=== PATIENT | male | born 1940 ===

== ENCOUNTER 2017-10-23 11:35 | Inpatient (IN) | payer MEDICARE ==
--- NOTE | 2017-10-23 12:16 | C.PDOC ---
History Of Present Illness Patient presents to ED c/o SOB worse with laying flat over the past 1 week. He admits to nonproductive cough, but denies chest pain, fever, abdominal pain, palpitations, nausea/vomiting, leg edema. Time Seen by Provider: 10/23/17 11:45 Chief Complaint (Nursing): Shortness Of Breath History Per: Patient History/Exam Limitations: no limitations Onset/Duration Of Symptoms: Days Current Symptoms Are (Timing): Still Present Exacerbating Factor(s): Coughing Current Respiratory Medications: See Home Med List Severity: Moderate Past Medical History Reviewed: Historical Data, Nursing Documentation, Vital Signs Vital Signs: Last Vital Signs Temp Pulse Resp 20 10/23/17 12:17 BP Pulse Ox 98 10/23/17 12:57 - Medical History PMH: Arthritis, Benign Prostatic Hyperplasia, Diabetes (type 2), HTN, Hypercholesterolemia Denies: Chronic Kidney Disease Surgical History: Appendectomy - [facility] Procedures VACCINATION NEC (08/06/14) Family History: States: No Known Family Hx - Social History Hx Tobacco Use: No Hx Alcohol Use: No Hx Substance Use: No - Immunization History Hx Tetanus Toxoid Vaccination: No Hx Influenza Vaccination: No Hx Pneumococcal Vaccination: No Review Of Systems Constitutional: Negative for: Fever, Chills Cardiovascular: Positive for: Orthopnea. Negative for: Chest Pain, Palpitations Respiratory: Positive for: Cough, Shortness of Breath Gastrointestinal: Negative for: Nausea, Vomiting, Abdominal Pain, Diarrhea Skin: Negative for: Rash Neurological: Negative for: Weakness, Numbness Physical Exam - Physical Exam Appears: Well, Non-toxic, No Acute Distress, Other (speaking in full sentences) Head: Atraumatic, Normacephalic Eye(s): bilateral: Normal Inspection Oral Mucosa: Moist Cardiovascular: Rhythm Regular Respiratory: No Accessory Muscle Use, Rales (mild at bases B/L ), Rhonchi ( scattered rhonchi B/L ), No Wheezing Gastrointestinal/Abdominal: Normal Exam, Bowel Sounds, Soft, No Tenderness Extremity: Normal ROM, No Pedal Edema, No Calf Tenderness Neurological/Psych: Oriented x3 ED Course And Treatment - Laboratory Results Result Diagrams: 10/23/17 12:34 10/23/17 12:34 ECG: Interpreted By Me, Viewed By Me (sinus bradycardia 58 bpm, normal axis, no acute ST/T wave changes) ECG Interpretation: No Acute Changes O2 Sat by Pulse Oximetry: 98 (RA) Pulse Ox Interpretation: Normal Progress Note: Blood work, CXR, EKG, ordered and reviewed. Disposition - Disposition Disposition Time: 13:00 Condition: STABLE Forms: [employer] [facility] ([place]ian) - Clinical Impression Clinical Impression: Dyspnea, Orthopnea Physician Patient Turnover Patient Signed Over To: Queta Reeves Handoff Comments: pending labs, reassess
--- NOTE | 2017-10-23 12:22 | RAD ---
Date of service: 10/23/2017 PROCEDURE: CHEST RADIOGRAPH, 1 VIEW HISTORY: SOB COMPARISON: CT angiography of the chest, abdomen pelvis performed 04/13/2015. FINDINGS: LUNGS: Pulmonary vascular congestion. Questionable patchy bibasilar infiltrates versus chronic changes. PLEURA: No pneumothorax or pleural fluid seen. CARDIOVASCULAR: Atherosclerotic aortic calcifications. Cardiomediastinal silhouette enlarged. OSSEOUS STRUCTURES: Degenerative changes. VISUALIZED UPPER ABDOMEN: Normal. OTHER FINDINGS: None. IMPRESSION: Pulmonary vascular congestion. Questionable patchy bibasilar infiltrates versus chronic changes.
[2017-10-23 12:40] LABS: LYMPH # 1.3 K/uL (1.0-4.3); LYMPH % 31.1 % (20.0-40.0); MEAN CELL VOLUME 78.8 fL (80.0-94.0); MEAN CORPUSCULAR HEMOGLOBIN 25.6 pg (27.0-31.0); MEAN CORPUSCULAR HGB CONC 32.5 g/dL (33.0-37.0); MEAN PLATELET VOLUME 9.5 fL (7.2-11.7); MONO # 0.9 K/uL (0.0-0.8); MONO % 21.3 % (0.0-10.0); NEUT # 1.9 K/uL (1.8-7.0); NEUT % 47.6 % (50.0-75.0); NRBC % 0.1 % (0.0-2.0); PLATELET COUNT 81 K/uL (130-400); RED CELL DISTRIBUTION WIDTH 18.4 % (11.5-14.5)
[2017-10-23 12:42] LABS: HEMOGLOBIN 9.2 g/dL (12.0-18.0)
[2017-10-23 12:50] LABS: INR 1.4
[2017-10-23 12:51] LABS: PROTHROMBIN TIME 14.9 SECONDS (9.7-12.2)
[2017-10-23 12:54] LABS: ALB/GLOB RATIO 1.8 (1.0-2.1); ALBUMIN 4.5 g/dL (3.5-5.0); CALCIUM 9.1 mg/dl (8.6-10.4)
[2017-10-23 13:05] LABS: CK-MB 0.99 ng/mL (0.0-3.38); TROPONIN I 0.021 ng/mL (0.00-0.120)
[2017-10-23 13:45] LABS: LYMPHOCYTE 26 % (20-40); MONOCYTE 8 % (0-10); NEUTROPHIL 66 % (50-75); TOTAL CELLS COUNTED 100
[2017-10-23 13:47] LABS: ANISOCYTOSIS SLIGHT; HYPOCHROMIC SLIGHT; OVALOCYTES SLIGHT; PLATELET ESTIMATE DECREASED (NORMAL); POIKILOCYTOSIS SLIGHT; TEARDROP CELLS SLIGHT
[2017-10-23 13:48] LABS: POLYCHROMIC SLIGHT
[2017-10-23] MEDS ORDERED: Nitroglycerin 2% Ointment Foilpak UD TOP ONE (18:27)
[2017-10-23] MEDS: Nitroglycerin 2% Ointment Foilpak UD TOP SCH (18:27)
--- NOTE | 2017-10-24 00:20 | CP.PCM.CON ---
History of Present Illness - History of Present Illness History of Present Illness: CC: Dyspnea and Valvular regurgitation Patient presents to ED c/o SOB worse with laying flat over the past 1 week. He admits to nonproductive cough, but denies chest pain, fever, abdominal pain, palpitations, nausea/vomiting, leg edema. Chief Complaint (Nursing): Shortness Of Breath History Per: Patient History/Exam Limitations: no limitations Onset/Duration Of Symptoms: Days Current Symptoms Are (Timing): Still Present Exacerbating Factor(s): Coughing Current Respiratory Medications: See Home Med List Severity: Moderate - Medical History PMH: Arthritis, Benign Prostatic Hyperplasia, Diabetes (type 2), HTN, Hypercholesterolemia Denies: Chronic Kidney Disease Surgical History: Appendectomy - [facility] Procedures VACCINATION NEC (08/06/14) Family History: States: No Known Family Hx - Social History Hx Tobacco Use: No Hx Alcohol Use: No Hx Substance Use: No - Immunization History Hx Tetanus Toxoid Vaccination: No Hx Influenza Vaccination: No Hx Pneumococcal Vaccination: No Review Of Systems Constitutional: Negative for: Fever, Chills Cardiovascular: Positive for: Orthopnea. Negative for: Chest Pain, Palpitations Respiratory: Positive for: Cough, Shortness of Breath Gastrointestinal: Negative for: Nausea, Vomiting, Abdominal Pain, Diarrhea Skin: Negative for: Rash Neurological: Negative for: Weakness, Numbness Physical Exam - Physical Exam Appears: Well, Non-toxic, No Acute Distress, Other (speaking in full sentences) Head: Atraumatic, Normacephalic Eye(s): bilateral: Normal Inspection Oral Mucosa: Moist Cardiovascular: Rhythm Regular Respiratory: No Accessory Muscle Use, Rales (mild at bases B/L ), Rhonchi ( scattered rhonchi B/L ), No Wheezing Gastrointestinal/Abdominal: Normal Exam, Bowel Sounds, Soft, No Tenderness Extremity: Normal ROM, No Pedal Edema, No Calf Tenderness Neurological/Psych: Oriented x3 Past Patient History - Infectious Disease Hx of Infectious Diseases: None - Tetanus Immunizations Tetanus Immunization: Unknown - Past Medical History & Family History Past Medical History?: Yes - Past Social History Smoking Status: Never Smoked - CARDIAC Hx Hypercholesterolemia: Yes Hx Hypertension: Yes - PULMONARY Hx Respiratory Disorders: No - NEUROLOGICAL Hx Neurological Disorder: No - HEENT Hx HEENT Problems: No - RENAL Hx Chronic Kidney Disease: No - ENDOCRINE/METABOLIC Hx Endocrine Disorders: Yes Hx Diabetes Mellitus Type 2: Yes - HEMATOLOGICAL/ONCOLOGICAL Hx Blood Disorders: No - INTEGUMENTARY Hx Dermatological Problems: No - MUSCULOSKELETAL/RHEUMATOLOGICAL Hx Arthritis: Yes Hx Falls: No - GASTROINTESTINAL Hx Gastrointestinal Disorders: No - GENITOURINARY/GYNECOLOGICAL Hx Genitourinary Disorders: Yes Hx Prostate Problems: Yes (incontinent) - PSYCHIATRIC Hx Substance Use: No - SURGICAL HISTORY Hx Appendectomy: Yes - ANESTHESIA Hx Anesthesia: Yes Hx Anesthesia Reactions: No Hx Malignant Hyperthermia: No Meds Allergies/Adverse Reactions: Allergies Allergy/AdvReac Type Severity Reaction Status Date / Time polle Allergy Intermediate WHEEZING Uncoded 10/23/17 11:57 - Medications Medications: Current Medications Furosemide (Lasix) 20 mg IVP DAILY [facility] Nitroglycerin (Nitro-Bid 2% Oint) 1 ea TOP Q6 [facility] Last Admin: 10/23/17 18:27 Dose: 1 ea Results - Vital Signs Recent Vital Signs: Last Vital Signs Temp 98.3 F 10/23/17 19:10 Pulse 71 10/23/17 20:00 Resp 20 10/23/17 19:21 BP 174/87 H 10/23/17 19:10 Pulse Ox 98 10/23/17 20:00 - Labs Result Diagrams: 10/23/17 12:34 10/23/17 12:34 Labs: Laboratory Results - last 24 hr 10/23/17 10/23/17 10/23/17 11:59 12:34 12:34 WBC 4.0 L RBC 3.60 L Hgb 9.2 L D Hct 28.3 L MCV 78.8 L MCH 25.6 L MCHC 32.5 L RDW 18.4 H Plt Count 81 L MPV 9.5 Neut % (Auto) 47.6 L Lymph % (Auto) 31.1 [place] % (Auto) 21.3 H Eos % (Auto) 0.0 Baso % (Auto) 0.0 Neut # (Auto) 1.9 Lymph # (Auto) 1.3 [place] # (Auto) 0.9 H Eos # (Auto) 0.0 Baso # (Auto) 0.0 Neutrophils % (Manual) 66 Lymphocytes % (Manual) 26 Monocytes % (Manual) 8 Platelet Estimate Decreased L Polychromasia Slight Hypochromasia (manual) Slight Poikilocytosis (manual Slight Anisocytosis (manual) Slight Tear Drop Cells Slight Ovalocytes Slight PT 14.9 H INR 1.4 APTT 32 Sodium Potassium Chloride Carbon Dioxide Anion Gap BUN Creatinine Est GFR ( Amer) Est GFR (Non-Af Amer) POC Glucose (mg/dL) 171 H Random Glucose Calcium Total Bilirubin AST ALT Alkaline Phosphatase Total Creatine Kinase CK-MB (Mass) Troponin I NT-Pro-B Natriuret Pep Total Protein Albumin Globulin Albumin/Globulin Ratio 10/23/17 10/23/17 12:34 21:35 WBC RBC Hgb Hct MCV MCH MCHC RDW Plt Count MPV Neut % (Auto) Lymph % (Auto) [place] % (Auto) Eos % (Auto) Baso % (Auto) Neut # (Auto) Lymph # (Auto) [place] # (Auto) Eos # (Auto) Baso # (Auto) Neutrophils % (Manual) Lymphocytes % (Manual) Monocytes % (Manual) Platelet Estimate Polychromasia Hypochromasia (manual) Poikilocytosis (manual Anisocytosis (manual) Tear Drop Cells Ovalocytes PT INR APTT Sodium 145 Potassium 4.6 Chloride 104 Carbon Dioxide 28 Anion Gap 17 BUN 21 H Creatinine 1.6 H Est GFR ( Amer) 51 Est GFR (Non-Af Amer) 42 POC Glucose (mg/dL) 141 H Random Glucose 148 H Calcium 9.1 Total Bilirubin 2.0 H AST 18 ALT 21 Alkaline Phosphatase 26 L Total Creatine Kinase 85 CK-MB (Mass) 0.99 Troponin I 0.0210 NT-Pro-B Natriuret Pep 9100 H Total Protein 7.1 Albumin 4.5 Globulin 2.5 Albumin/Globulin Ratio 1.8 Assessment & Plan - Assessment and Plan (Free Text) Assessment: (1) Dyspnea on minimal exertion Assessment and plan: ECHO shows significant MR and AI Will evaluate by JUAN PABLO and Cath Continue Lasix (2) Aortic dissection Assessment and plan: s/p CT Chest/Abdomen indicating Type B aortic dissection Chronic (3) Benign prostatic hyperplasia Current Visit: Yes Status: Chronic Comment: Mgt as per PMD (4) Diabetes mellitus Current Visit: Yes Status: Acute Comment: Start Insulin Sliding Scale Accuchecks Home medication of Metformin on hold Monitor (5) Prophylactic measure Assessment and plan: On heparin 5000 units SC Q12 On Protonix 40 mg PO Daily Current Visit: Yes Status: Acute
[2017-10-24] MEDS: Nitroglycerin 2% Ointment Foilpak UD TOP SCH ×4 (00:22→18:27)
--- NOTE | 2017-10-24 02:09 | HP ---
HISTORY OF PRESENT ILLNESS: A 77-year-old gentleman who was brought in with a history of shortness of breath, that started last night. He has multiple medical problems which includes history of hypertension, diabetes, high cholesterol, atherosclerosis. 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 This was diagnosed in 11/2014, three years ago. He was in usual state of health up until last night when he could not sleep, had a cough and shortness of breath, came to the emergency room but his chest x-ray had shown mild vascular congestion and the proBNP was elevated to 9000. His hemoglobin was 9.2. MEDICATIONS AT HOME: Include baby aspirin one a day, Crestor 20 one a day, Lovaza, metformin 500 mg twice a day. PAST MEDICAL HISTORY: He had a cardiac cath done many years ago. He had a nonobstructive coronary artery disease. Echocardiogram was recently done, few months ago, had shown dilated LV, mild to moderate AI, mild to moderate MR, grade 2 LV diastolic dysfunction. He previously also has been seen by Dr. Aguila. FAMILY HISTORY: Negative for premature coronary artery disease. REVIEW OF SYSTEMS: No generalized weakness, no fever, no chills, no dizziness, except when he walks around in the hot weather. Otherwise, unremarkable. No syncope. Nonproductive cough for 2 days. No hemoptysis. Denies any chest pain. Able to walk and do routine activities, 3 to 4 block on a level ground. No palpitations. Neurologically, no TIAs, no CVAs. No peptic ulcer disease. No bleeding disorders. Does have a history of arthritis and back pains and knee pains. There is no evidence of depression. Denies any urinary complaints. He does have erectile dysfunction, has been seen and evaluated by urologist in the past. PHYSICAL EXAMINATION: GENERAL: Shows elderly gentleman, conscious, alert, well oriented, in no acute distress. VITAL SIGNS: He is 5 feet 7 inches, weighs 192 pounds. His blood pressure is 136/70, heart rate of 56 and regular, sinus rhythm on the telemetry, respiratory rate of 20, afebrile. HEENT: No neck vein distentions. No carotid bruits. MOUTH: Mouth shows absence of all teeth. EYES: No pallor, no icterus. HEAD: Normocephalic. LUNGS: Show few basilar rales. Otherwise unremarkable. HEART: PMI is not localized. S1 and S2 appear normal. There are no gallops. There is a grade 2/6 holosystolic murmur in mitral area. No diastolic murmur heard. No S3 gallop. ABDOMEN: Soft, nontender. EXTREMITIES: No cyanosis, clubbing, or edema. Distal pulses are intact. NEUROLOGIC: Awake, alert, oriented x3. No focal signs. PSYCHIATRIC: No evidence of depression. LABORATORY DATA: Hemoglobin is 9.2. Chest x-ray shows mild congestion. Chem-7 is unremarkable. Bilirubin is elevated at 2. EKG: Sinus bradycardia, LVH, nonspecific ST-T changes. Troponins are not available. 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 PLAN: At this point is to give small dose of diuretic. We will repeat echocardiogram with a Doppler study and repeat CT, angio of chest and abdomen. May need vascular consultation. Care of plan was explained to the patient. Also, we will do anemia workup. Eric Arias MD
[2017-10-24] MEDS: Pantoprazole 40 mg EC Tab PO SCH (09:48)
--- NOTE | 2017-10-24 11:56 | CARD ---
APPROVED REPORT Date of service: 10/23/2017 EXAM: Two-dimensional and M-mode echocardiogram with Doppler and color Doppler. Other Information Quality : GoodRhythm : INDICATION Aortic Valve Disease Dyspnea Chest Pain Congestive Heart Failure Aortic Dissection 2D DIMENSIONS IVSd1.6 (0.7-1.1cm)LVDd5.5 (3.9-5.9cm) PWd1.2 (0.7-1.1cm)LVDs4.7 (2.5-4.0cm) FS (%) 14.8 %LVEF (%)50.0 (>50%) M-Mode DIMENSIONS Left Atrium (MM)3.79 (2.5-4.0cm)IVSd1.22 (0.7-1.1cm) Aortic Root4.18 (2.2-3.7cm)LVDd6.43 (4.0-5.6cm) Aortic Cusp Exc.1.90 (1.5-2.0cm)PWd1.22 (0.7-1.1cm) FS (%) 41 %LVDs3.79 (2.0-3.8cm) LVEF (%)50 (>50%) Aortic Valve AI P 1/2 [id number] Mitral Valve MV E Xdlanjpy25.1cm/sMV A Eizcwfxv01.4cm/sE/A ratio2.1 TDI E/Lateral E'0.0E/Medial E'0.0 Tricuspid Valve TR Peak [id number]/sTR Peak [id number] LEFT VENTRICLE The left ventricle is normal size. There is normal left ventricular wall thickness. The left ventricular function is normal. The left ventricular ejection fraction is within the normal range. No regional wall motion abnormalities noted. The left ventricular diastolic function is normal. No left ventricle thrombus noted on this study. There is no ventricular septal defect visualized. There is no left ventricular aneurysm. There is no mass noted in the left ventricle. RIGHT VENTRICLE The right ventricle is normal size. There is normal right ventricular wall thickness. The right ventricular systolic function is normal. ATRIA The left atrium size is normal. The right atrium size is normal. The interatrial septum is intact with no evidence for an atrial septal defect. AORTIC VALVE The aortic valve is mildly to moderately thickened. There is moderate aortic regurgitation. There is no aortic valvular stenosis. There is no aortic valvular vegetation. MITRAL VALVE The mitral valve is normal in structure and function. There is no evidence of mitral valve prolapse. There is no mitral valve stenosis. The mitral regurgitant jet is posteriorly directed, which is consistent with anterior leaflet pathology. The mitral regurgitant jet is anteriorly directed, which is consistent with posterior leaflet pathology. TRICUSPID VALVE The tricuspid valve is normal in structure and function. There is moderate tricuspid regurgitation. Right ventricular systolic pressure is estimated at greater than 60 mmHg. There is no tricuspid valve prolapse or vegetation. There is no tricuspid valve stenosis. PULMONIC VALVE The pulmonary valve is normal in structure and function. There is mild pulmonic valvular regurgitation. There is no pulmonic valvular stenosis. GREAT VESSELS The aortic root is normal in size. The ascending aorta is normal in size. The pulmonary artery is normal. The IVC is dilated. The IVC collapses <50% with inspiration. PERICARDIAL EFFUSION The pericardium appears normal. There is no pleural effusion. <Conclusion> The left ventricular function is normal. The left ventricular ejection fraction is within the normal range. No regional wall motion abnormalities noted. There is moderate aortic regurgitation. The mitral regurgitant jet is posteriorly directed, which is consistent with anterior leaflet pathology. The mitral regurgitant jet is anteriorly directed, which is consistent with posterior leaflet pathology. There is moderate tricuspid regurgitation. Right ventricular systolic pressure is estimated at greater than 60 mmHg.
--- NOTE | 2017-10-24 12:59 | CP.PCM.PN ---
Subjective - Date & Time of Evaluation Date of Evaluation: 10/24/17 Time of Evaluation: 12:57 - Subjective Subjective: no sob,no chest pains Objective - Vital Signs/Intake and Output Vital Signs (last 24 hours): Temp Pulse Resp BP Pulse Ox 97.8 F 58 L 20 157/80 H 96 10/24/17 07:40 10/24/17 09:41 10/24/17 07:40 10/24/17 09:44 10/24/17 07:40 Intake and Output: 10/24/17 10/24/17 06:59 18:59 Output Total 425 Balance -425 - Medications Medications: Current Medications Aspirin (Ecotrin) 81 mg PO DAILY [facility] Last Admin: 10/24/17 09:45 Dose: 81 mg Furosemide (Lasix) 20 mg IVP DAILY [facility] Last Admin: 10/24/17 09:44 Dose: 20 mg Heparin Sodium (Porcine) (Heparin) 5,000 units SC Q8 [facility] Last Admin: 10/24/17 05:27 Dose: 5,000 units Sodium Chloride (Sodium Chloride 0.9%) 1,000 mls @ 50 mls/hr IV .Q20H [facility] Losartan Potassium (Cozaar) 25 mg PO DAILY [facility] Last Admin: 10/24/17 09:45 Dose: 25 mg Nitroglycerin (Nitro-Bid 2% Oint) 1 ea TOP Q6 [facility] Last Admin: 10/24/17 12:37 Dose: 1 ea Pantoprazole Sodium (Protonix Ec Tab) 40 mg PO DAILY [facility] Last Admin: 10/24/17 09:48 Dose: 40 mg - Labs Labs: 10/23/17 12:34 10/23/17 12:34 PT 14.9 SECONDS (9.7-12.2) H 10/23/17 12:34 INR 1.4 10/23/17 12:34 APTT 32 SECONDS (21-34) 10/23/17 12:34 - Constitutional Appears: No Acute Distress - Head Exam Head Exam: NORMOCEPHALIC - Eye Exam Eye Exam: Normal appearance - Neck Exam Neck Exam: Normal Inspection - Respiratory Exam Respiratory Exam: Clear to Ausculation Bilateral - Cardiovascular Exam Cardiovascular Exam: REGULAR RHYTHM, Murmur - GI/Abdominal Exam GI & Abdominal Exam: Soft - Extremities Exam Extremities Exam: absent: Pedal Edema - Neurological Exam Neurological Exam: Alert, Oriented x3 Assessment and Plan - Assessment and Plan (Free Text) Assessment: echo noted.2-3 + ai,2-3 + mr,tr with severe pul htn.will obtain jessica.given dilated lv with lvef of about 50% may need avr? & mitral ring.hem consult.
--- NOTE | 2017-10-24 14:53 | CP.PCM.CON ---
History of Present Illness - History of Present Illness History of Present Illness: 77 year old male with a history of DM, HTN, HL, chronic aortic dissection type B , presenting with shortness of breath, with pancytopenia. The patient notes to low platelets in the past but denies abnormal bleeding and bruising. He denies alcohol intake and notes his blood counts have been like this for years. His breathing is improved. Past medical history: DM, HTN, HL, chronic aortic dissection type B Past surgical history: Appendectomy Family history: Denies hematologic and oncologic problems Social history: Denies tobacco, alcohol, and illicit drug use Allergies: NKDA Review of systems: All remaining review of systems including HEENT, cardiovascular, respiratory, gastrointestinal, genitourinary, musculoskeletal, dermatologic, neurologic, and psychiatric are negative unless mentioned in the HPI. Past Patient History - Infectious Disease Hx of Infectious Diseases: None - Tetanus Immunizations Tetanus Immunization: Unknown - Past Medical History & Family History Past Medical History?: Yes - Past Social History Smoking Status: Never Smoked - CARDIAC Hx Hypercholesterolemia: Yes Hx Hypertension: Yes - PULMONARY Hx Respiratory Disorders: No - NEUROLOGICAL Hx Neurological Disorder: No - HEENT Hx HEENT Problems: No - RENAL Hx Chronic Kidney Disease: No - ENDOCRINE/METABOLIC Hx Endocrine Disorders: Yes Hx Diabetes Mellitus Type 2: Yes - HEMATOLOGICAL/ONCOLOGICAL Hx Blood Disorders: No - INTEGUMENTARY Hx Dermatological Problems: No - MUSCULOSKELETAL/RHEUMATOLOGICAL Hx Arthritis: Yes Hx Falls: No - GASTROINTESTINAL Hx Gastrointestinal Disorders: No - GENITOURINARY/GYNECOLOGICAL Hx Genitourinary Disorders: Yes Hx Prostate Problems: Yes (incontinent) - PSYCHIATRIC Hx Substance Use: No - SURGICAL HISTORY Hx Appendectomy: Yes - ANESTHESIA Hx Anesthesia: Yes Hx Anesthesia Reactions: No Hx Malignant Hyperthermia: No Meds Allergies/Adverse Reactions: Allergies Allergy/AdvReac Type Severity Reaction Status Date / Time polle Allergy Intermediate WHEEZING Uncoded 10/23/17 11:57 - Medications Medications: Current Medications Aspirin (Ecotrin) 81 mg PO DAILY [facility] Last Admin: 10/24/17 09:45 Dose: 81 mg Furosemide (Lasix) 20 mg IVP DAILY [facility] Last Admin: 10/24/17 09:44 Dose: 20 mg Heparin Sodium (Porcine) (Heparin) 5,000 units SC Q8 [facility] Last Admin: 10/24/17 13:23 Dose: 5,000 units Sodium Chloride (Sodium Chloride 0.9%) 1,000 mls @ 50 mls/hr IV .Q20H [facility] Losartan Potassium (Cozaar) 25 mg PO DAILY [facility] Last Admin: 10/24/17 09:45 Dose: 25 mg Nitroglycerin (Nitro-Bid 2% Oint) 1 ea TOP Q6 [facility] Last Admin: 10/24/17 12:37 Dose: 1 ea Pantoprazole Sodium (Protonix Ec Tab) 40 mg PO DAILY [facility] Last Admin: 10/24/17 09:48 Dose: 40 mg Physical Exam - Head Exam Head Exam: ATRAUMATIC - Eye Exam Eye Exam: Normal appearance - ENT Exam ENT Exam: Mucous Membranes Dry - Respiratory Exam Respiratory Exam: NORMAL BREATHING PATTERN - Cardiovascular Exam Cardiovascular Exam: +S1, +S2 - GI/Abdominal Exam GI & Abdominal Exam: Normal Bowel Sounds - Extremities Exam Extremities exam: Positive for: normal inspection Results - Vital Signs Recent Vital Signs: Last Vital Signs Temp 97.8 F 10/24/17 07:40 Pulse 58 L 10/24/17 09:41 Resp 20 10/24/17 07:40 BP 157/80 H 10/24/17 09:44 Pulse Ox 96 10/24/17 07:40 - Labs Result Diagrams: 10/23/17 12:34 10/23/17 12:34 Labs: Laboratory Results - last 24 hr 10/23/17 10/24/17 10/24/17 21:35 06:21 11:50 POC Glucose (mg/dL) 141 H 120 H 175 H Assessment & Plan (1) Pancytopenia Assessment and Plan: will check HIV and hepatitis panel retic count, b12, folate, ferritin, hgb electropheresis to further characterize anemia cytopenias appear chronic since 2014 in our system; no plan for bone marrow evaluation at this time outpatient f/u Thank you for this interesting consult. Status: Acute
--- NOTE | 2017-10-24 19:56 | CP.PCM.PN ---
Subjective - Date & Time of Evaluation Date of Evaluation: 10/24/17 Time of Evaluation: 19:55 - Subjective Subjective: Patient with symptomatic valvular heart disease Decreased EF JUAN PABLO and Cath tomorrow to assess valves and Caronaries Objective - Vital Signs/Intake and Output Vital Signs (last 24 hours): Temp Pulse Resp BP Pulse Ox 97.3 F L 59 L 20 144/84 98 10/24/17 15:39 10/24/17 15:39 10/24/17 15:39 10/24/17 15:39 10/24/17 15:39 Intake and Output: 10/24/17 10/25/17 18:59 06:59 Intake Total 350 Balance 350 - Medications Medications: Current Medications Aspirin (Ecotrin) 81 mg PO DAILY [facility] Last Admin: 10/24/17 09:45 Dose: 81 mg Furosemide (Lasix) 20 mg IVP DAILY [facility] Last Admin: 10/24/17 09:44 Dose: 20 mg Furosemide (Lasix) 20 mg IVP ONCE ONE Stop: 10/25/17 09:01 Heparin Sodium (Porcine) (Heparin) 5,000 units SC Q8 [facility] Last Admin: 10/24/17 13:23 Dose: 5,000 units Sodium Chloride (Sodium Chloride 0.9%) 1,000 mls @ 50 mls/hr IV .Q20H [facility] Losartan Potassium (Cozaar) 25 mg PO DAILY [facility] Last Admin: 10/24/17 09:45 Dose: 25 mg Nitroglycerin (Nitro-Bid 2% Oint) 1 ea TOP Q6 [facility] Last Admin: 10/24/17 18:27 Dose: 1 ea Pantoprazole Sodium (Protonix Ec Tab) 40 mg PO DAILY [facility] Last Admin: 10/24/17 09:48 Dose: 40 mg - Labs Labs: 10/23/17 12:34 10/23/17 12:34 PT 14.9 SECONDS (9.7-12.2) H 10/23/17 12:34 INR 1.4 10/23/17 12:34 APTT 32 SECONDS (21-34) 10/23/17 12:34
[2017-10-25] MEDS: Nitroglycerin 2% Ointment Foilpak UD TOP SCH ×4 (00:10→18:23)
[2017-10-25] MEDS ORDERED: Sodium Chloride 0.9% 1,000 ML IV SCH ×2 (00:30→13:30)
[2017-10-25 07:12] LABS: MEAN CELL VOLUME 78.9 fL (80.0-94.0); MEAN CORPUSCULAR HEMOGLOBIN 26.2 pg (27.0-31.0); MEAN CORPUSCULAR HGB CONC 33.2 g/dL (33.0-37.0); MEAN PLATELET VOLUME 9.5 fL (7.2-11.7); RBC 3.83 Mil/uL (4.40-5.90); RED CELL DISTRIBUTION WIDTH 18.6 % (11.5-14.5); WHITE BLOOD COUNT 4.3 K/uL (4.8-10.8)
[2017-10-25 07:45] LABS: INR 1.3; PROTHROMBIN TIME 14.5 SECONDS (9.7-12.2)
[2017-10-25 07:59] LABS: HEPATITIS B SURFACE AG Negative (NEGATIVE)
[2017-10-25 08:04] LABS: HEPATITIS A IGM NEGATIVE (NEGATIVE); HEPATITIS B CORE AB NEGATIVE (NEGATIVE)
[2017-10-25 08:17] LABS: HEPATITIS C ANTIBODY NEGATIVE (NEGATIVE)
[2017-10-25 08:21] LABS: FERRITIN 40.1 ng/mL
[2017-10-25] MEDS ORDERED: Lidocaine 4% (Laryng-O-Jet) Kit MM ONE (08:45)
[2017-10-25] MEDS ORDERED: Midazolam 2 MG/2 ML VIAL ONE (10:21)
[2017-10-25] MEDS ORDERED: Propofol 10 mg/ml Inj (20 ML) ONE (10:22)
[2017-10-25] MEDS ORDERED: Etomidate 20 mg/10ml Inj IV ONE (10:25)
[2017-10-25] MEDS ORDERED: Iodixanol 320 MG/ML 200 ML BOTTLE IV ONE (12:02)
[2017-10-25] MEDS ORDERED: Lidocaine 2% MPF (5 ml) Inj ONE (12:02)
[2017-10-25] MEDS ORDERED: Iodixanol 320 MG/ML 100 ML BOTTLE IV ONE (12:03)
[2017-10-25] MEDS ORDERED: Verapamil 2 ML ONE (12:04)
[2017-10-25] MEDS ORDERED: Nitroglycerin 50mg in D5W 50 MG/250 ML BOTTLE IV ONE (12:05)
--- NOTE | 2017-10-25 12:11 | CARD ---
APPROVED REPORT Date of service: 10/23/2017 EKG Measurement Heart [id number] [id number] <Conclusion> Sinus bradycardia,lvh. non specific st t changes. Otherwise normal ECG
--- NOTE | 2017-10-25 14:47 | CP.PCM.PN ---
Subjective - Date & Time of Evaluation Date of Evaluation: 10/25/17 Time of Evaluation: 14:45 - Subjective Subjective: cath,jessica noted. Objective - Vital Signs/Intake and Output Vital Signs (last 24 hours): Temp Pulse Resp BP Pulse Ox 98.0 F 73 18 186/93 H 100 10/25/17 07:00 10/25/17 07:00 10/25/17 07:00 10/25/17 07:00 10/25/17 07:00 Intake and Output: 10/25/17 10/25/17 06:59 18:59 Output Total 125 Balance -125 - Medications Medications: Current Medications Aspirin (Ecotrin) 81 mg PO DAILY [facility] Last Admin: 10/24/17 09:45 Dose: 81 mg Furosemide (Lasix) 20 mg IVP DAILY [facility] Last Admin: 10/24/17 09:44 Dose: 20 mg Heparin Sodium (Porcine) (Heparin) 5,000 units SC Q8 [facility] Last Admin: 10/25/17 05:42 Dose: Not Given Sodium Chloride (Sodium Chloride 0.9%) 1,000 mls @ 50 mls/hr IV .Q20H [facility] Stop: 10/26/17 01:31 Losartan Potassium (Cozaar) 25 mg PO DAILY [facility] Last Admin: 10/24/17 09:45 Dose: 25 mg Nitroglycerin (Nitro-Bid 2% Oint) 1 ea TOP Q6 [facility] Last Admin: 10/25/17 05:44 Dose: Not Given Pantoprazole Sodium (Protonix Ec Tab) 40 mg PO DAILY [facility] Last Admin: 10/24/17 09:48 Dose: 40 mg - Labs Labs: 10/25/17 07:07 10/25/17 07:07 PT 14.5 SECONDS (9.7-12.2) H 10/25/17 07:07 INR 1.3 10/25/17 07:07 APTT 32 SECONDS (21-34) 10/23/17 12:34 - Constitutional Appears: In Acute Distress - Neck Exam Neck Exam: Normal Inspection - Respiratory Exam Respiratory Exam: Clear to Ausculation Bilateral - Cardiovascular Exam Cardiovascular Exam: REGULAR RHYTHM, Murmur - GI/Abdominal Exam GI & Abdominal Exam: Soft - Extremities Exam Extremities Exam: absent: Pedal Edema - Neurological Exam Neurological Exam: Alert, Oriented x3 Assessment and Plan - Assessment and Plan (Free Text) Assessment: diss with dr reeves.medical rx for now.severe mr,3 +,moderate ai,type b dissection.? mitral clip,percutaneously.
[2017-10-25] MEDS: Pantoprazole 40 mg EC Tab PO SCH (18:24)
[2017-10-26] MEDS: Nitroglycerin 2% Ointment Foilpak UD TOP SCH ×5 (05:50→23:45)
--- NOTE | 2017-10-26 06:51 | CP.PCM.PN ---
Subjective - Date & Time of Evaluation Date of Evaluation: 10/25/17 Time of Evaluation: 19:30 - Subjective Subjective: Patient s/p JUAN PABLO and Cardiac cath 1. Non obstructive Coronaries 2. Moderate to severe MR 3. Moderate AI Medical management for now for diastolic CHF and valvular heart disease If symptoms persist despite medical therapy he will likely need Mitral valve repair or Geraldine clip (if qualifies) Will follow as out patient Objective - Vital Signs/Intake and Output Vital Signs (last 24 hours): Temp Pulse Resp BP Pulse Ox 97.9 F 62 20 150/56 L 97 10/26/17 04:25 10/26/17 04:25 10/26/17 04:25 10/26/17 04:25 10/26/17 04:25 Intake and Output: 10/25/17 10/26/17 18:59 06:59 Intake Total 700 Output Total 325 Balance 375 - Medications Medications: Current Medications Aspirin (Ecotrin) 81 mg PO DAILY [facility] Last Admin: 10/24/17 09:45 Dose: 81 mg Furosemide (Lasix) 20 mg IVP DAILY [facility] Last Admin: 10/24/17 09:44 Dose: 20 mg Heparin Sodium (Porcine) (Heparin) 5,000 units SC Q8 [facility] Last Admin: 10/26/17 05:28 Dose: 5,000 units Losartan Potassium (Cozaar) 25 mg PO DAILY [facility] Last Admin: 10/25/17 18:22 Dose: 25 mg Nitroglycerin (Nitro-Bid 2% Oint) 1 ea TOP Q6 [facility] Last Admin: 10/26/17 00:00 Dose: Not Given Pantoprazole Sodium (Protonix Ec Tab) 40 mg PO DAILY [facility] Last Admin: 10/25/17 18:24 Dose: 40 mg - Labs Labs: 10/25/17 07:07 10/25/17 07:07 PT 14.5 SECONDS (9.7-12.2) H 10/25/17 07:07 INR 1.3 10/25/17 07:07 APTT 32 SECONDS (21-34) 10/23/17 12:34
[2017-10-26 07:00] LABS: MCH 25.4 pg (27.0-33.0); MCV 80.1 fL (80.0-100.0)
[2017-10-26] MEDS: Pantoprazole 40 mg EC Tab PO SCH (09:02)
[2017-10-27] MEDS: Nitroglycerin 2% Ointment Foilpak UD TOP SCH ×4 (05:53→23:45)
--- NOTE | 2017-10-27 07:52 | CP.PCM.PN ---
Subjective - Date & Time of Evaluation Date of Evaluation: 10/26/17 Time of Evaluation: 16:20 - Subjective Subjective: Patient seen and evaluated Denies chest pain and dyspnea Feels better Review Of Systems Constitutional: Negative for: Fever, Chills Cardiovascular: Positive for: Orthopnea. Negative for: Chest Pain, Palpitations Respiratory: Positive for: Cough, Shortness of Breath Gastrointestinal: Negative for: Nausea, Vomiting, Abdominal Pain, Diarrhea Skin: Negative for: Rash Neurological: Negative for: Weakness, Numbness Physical Exam - Physical Exam Appears: Well, Non-toxic, No Acute Distress, Other (speaking in full sentences) Head: Atraumatic, Normacephalic Eye(s): bilateral: Normal Inspection Oral Mucosa: Moist Cardiovascular: Rhythm Regular Respiratory: No Accessory Muscle Use, Rales (mild at bases B/L ), Rhonchi ( scattered rhonchi B/L ), No Wheezing Gastrointestinal/Abdominal: Normal Exam, Bowel Sounds, Soft, No Tenderness Extremity: Normal ROM, No Pedal Edema, No Calf Tenderness Neurological/Psych: Oriented x3 Objective - Vital Signs/Intake and Output Vital Signs (last 24 hours): Temp Pulse Resp BP Pulse Ox 98.3 F 63 20 154/81 H 93 L 10/27/17 04:45 10/27/17 04:45 10/27/17 04:45 10/27/17 04:45 10/27/17 04:45 Intake and Output: 10/27/17 10/27/17 06:59 18:59 Intake Total 400 Balance 400 - Medications Medications: Current Medications Aspirin (Ecotrin) 81 mg PO DAILY [facility] Last Admin: 10/26/17 09:02 Dose: 81 mg Furosemide (Lasix) 20 mg IVP DAILY [facility] Last Admin: 10/26/17 09:03 Dose: 20 mg Heparin Sodium (Porcine) (Heparin) 5,000 units SC Q8 [facility] Last Admin: 10/27/17 05:53 Dose: 5,000 units Losartan Potassium (Cozaar) 25 mg PO DAILY [facility] Last Admin: 10/26/17 09:02 Dose: 25 mg Nitroglycerin (Nitro-Bid 2% Oint) 1 ea TOP Q6 [facility] Last Admin: 10/26/17 23:45 Dose: Not Given Pantoprazole Sodium (Protonix Ec Tab) 40 mg PO DAILY [facility] Last Admin: 10/26/17 09:02 Dose: 40 mg - Labs Labs: 10/25/17 07:07 10/25/17 07:07 PT 14.5 SECONDS (9.7-12.2) H 10/25/17 07:07 INR 1.3 10/25/17 07:07 APTT 32 SECONDS (21-34) 10/23/17 12:34 Assessment and Plan - Assessment and Plan (Free Text) Assessment: Patient s/p JUAN PABLO and Cardiac cath 1. Non obstructive Coronaries 2. Moderate to severe MR 3. Moderate AI Medical management for now for diastolic CHF and valvular heart disease If symptoms persist despite medical therapy he will likely need Mitral valve repair or Geraldine clip (if qualifies) Will follow as out patient Check Labs (BUN/Creatinine) Liklely discharge Saturday Continue Aris
--- NOTE | 2017-10-27 09:05 | CARD ---
APPROVED REPORT Date of service: 10/25/2017 EXAM: Transesophageal echocardiogram with color flow Doppler. INDICATION MR and AI Mitral Valve E/A ratio0.0 TDI E/Lateral E'0.0E/Medial E'0.0 Reason For Test : Evaluate Mitral valve PROCEDURE After obtaining informed consent, patient underwent transesophageal echo in the [facility] [employer] [employer]. Type of Sedation : Conscious Sedation Sedation was provided by anesthesiologist. Sedation was achieved with intravenously. The JUAN PABLO was performed complications. Throughout the procedure, the blood pressure, pulse oximetry, cardiac rhythm, and rate were monitored. The patient tolerated the procedure without adverse effects. Recovery from conscious sedation was uneventful and vital signs were stable. LEFT VENTRICLE The left ventricle is normal size. There is moderate concentric left ventricular hypertrophy. The left ventricular function is normal. The left ventricular ejection fraction is within the normal range. There is normal LV segmental wall motion. No left ventricle thrombus noted on this study. There is no ventricular septal defect visualized. There is no left ventricular aneurysm. RIGHT VENTRICLE The right ventricle is normal size. The right ventricular systolic function is normal. ATRIA The left atrium is mildly dilated. The right atrium is mildly dilated. Inter atrial septum intact AORTIC VALVE Aortic valve Fibrosclrotic There is moderate aortic regurgitation. There is no aortic valvular stenosis. There is no aortic valvular vegetation. MITRAL VALVE Radha valve mildy degenrative A mild mitral valve prolapse is present. There is no mitral valve stenosis. Mitral regurgitation is moderate to severe. 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 There is moderate tricuspid regurgitation. There is no tricuspid valve stenosis. PULMONIC VALVE The pulmonary valve is normal in structure. There is moderate pulmonic valvular regurgitation. GREAT VESSELS Mildy dilated. Chronic Aortic dissection noted in descending thoracic Aorta <Conclusion> The left ventricular function is normal. The left ventricular ejection fraction is within the normal range. There is moderate concentric left ventricular hypertrophy. The left atrium is mildly dilated. Inter atrial septum intact Aortic valve Fibrosclrotic There is moderate aortic regurgitation. A mild mitral valve prolapse is present. Radha valve mildy degenrative A mild mitral valve prolapse is present. Mitral regurgitation is moderate to severe. 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 Chronic Aortic dissection noted in descending thoracic Aorta Severe Pulmonary HTN
[2017-10-27] MEDS: Pantoprazole 40 mg EC Tab PO SCH (10:37)
[2017-10-27 11:51] LABS: HEMOGLOBIN 10.8 g/dL (12.0-18.0); MEAN CELL VOLUME 79.4 fL (80.0-94.0); MEAN CORPUSCULAR HEMOGLOBIN 26.2 pg (27.0-31.0); MEAN PLATELET VOLUME 9.9 fL (7.2-11.7); RBC 4.13 Mil/uL (4.40-5.90); RED CELL DISTRIBUTION WIDTH 18.2 % (11.5-14.5); WHITE BLOOD COUNT 4.1 K/uL (4.8-10.8)
[2017-10-27 12:08] LABS: CALCIUM 9.4 mg/dl (8.6-10.4)
--- NOTE | 2017-10-27 16:13 | CARDCATH ---
PROCEDURE DATE: 10/25/2017 PROCEDURES: 1. Left heart catheterization. 2. Coronary angiogram. CLINICAL INDICATIONS: 1. Dyspnea on minimal exertion. 2. Acute diastolic congestive heart failure. 3. Mitral regurgitation. 4. Aortic regurgitation. 5. Hypertension. 6. Hyperlipidemia. 7. History of chronic descending thoracic aorta and abdominal aortic dissection. REFERRING PHYSICIAN: Dr. Eric Arias. PERFORMING PHYSICIAN: Dr. Rafi Garner. PROCEDURE: After informed consent, the patient was prepped and draped in the usual sterile fashion. Lidocaine 2% was given in the right wrist for local anesthesia. Using micropuncture technique, a 6-[place] sheath was introduced into right atrial artery. A 6-[place] catheter engaged into left main coronary artery. Contrast was injected and left coronary angiogram was done. Then, a 6-[place] JR4 diagnostic catheter engaged into right coronary artery. Contrast injected and right coronary angiogram was done. Then, a pigtail introduced into left ventricle across the aortic valve. LV end-diastolic pressure measured. Contrast was injected with power injector. LV angiogram was done. Then, the catheter was pulled back. Gradient across the aortic valve was measured. The patient tolerated the procedure well. Postprocedure radiological supervision and radiological interpretation of the images were done. FINDINGS: 1. Left main coronary artery is patent. 2. Proximal LAD is patent, middle LAD is patent, distal LAD has some 30 to 40% narrowing, diagonal branches are patent. 3. Proximal left circumflex coronary artery is patent, distal left coronary artery has a 50% nonobstructive stenosis. Obtuse marginal branches are patent. 4. Right coronary artery is ectatic and dominant artery, patent. 5. LV ejection fraction is approximately 55%. No gradient across the aortic valve. EDP is 32, 80%. There is moderate to severe mitral regurgitation noted. CONCLUSION: 1. Nonobstructive coronaries. 2. Moderate to severe mitral regurgitation. 3. Normal LV systolic function. Rafi Garner MD
[2017-10-28] MEDS: Nitroglycerin 2% Ointment Foilpak UD TOP SCH ×2 (05:56→11:26)
[2017-10-28 06:23] LABS: HEMOGLOBIN A 97.3 Percent (>96.0); HEMOGLOBIN A2 1.7 Percent (1.8-3.5)
[2017-10-28 08:34] VITALS: PULSE 78; RESP 18; TEMP 98.1; O2SAT 98
[2017-10-28] MEDS: Pantoprazole 40 mg EC Tab PO SCH (10:39)
[2017-10-28 10:40] VITALS: BP 179/75
--- NOTE | 2017-10-29 13:15 | DS ---
CHIEF COMPLAINT: A 77-year-old gentleman who was brought in with a mild congestive heart failure, given IV diuretics with improvement. Echocardiogram had shown LVEF of about 50%. He has a moderately dilated LA. LV was also dilated measuring 6.4 cm. JUAN PABLO confirmed moderately severe MR. Moderate degree of aortic regurgitation was also noted. The patient has a type B dissection up to the renal arteries. The patient had a cardiac cath done, which showed nonobstructive coronary artery disease, confirmed moderate AI and [id number] MR. Medical therapy is to be continued at this time and if further symptomatic, mitral clip percutaneously may be considered. The patient was seen and followed by Dr. Rafi Garner for interventional cardiology and will follow as an outpatient. At this point, the patient is stable, ambulating around, vital signs are stable. He will be continued on all his medications at home, which include Cozaar, Flomax, Protonix, metformin, and Lasix 40 mg p.o. once a day was added. I will see him back in one week's time. FINAL DIAGNOSES: 1. Congestive heart failure. 2. [id number] mitral regurgitation. 3. Moderate aortic regurgitation. 4. Type B aortic dissection. 5. Hypertension. 6. Diabetes. 7. High cholesterol. His platelet counts are 80,000 and hemoglobin is 10 gm. The patient was seen by Dr. Wilson for hematological evaluation. Care of plan was explained to the patient. Eric Arias MD
== END 2017-10-28 15:10 | disposition home or self-care (01) | DRG 286 ==
LOC: C.ER 11:35 → C.9E 13:19 → C.6T 18:34 → OBSVTOIN 10-27 16:00
PROVIDERS: ADMIT Internal Medicine Cardiovascular Disease; ATTEND Internal Medicine Cardiovascular Disease
PROC: 4A023N7 Measurement of Cardiac Sampling and Pressure, Left Heart, Percutaneous Approach (ICD-10-PCS; principal; 2017-10-27)
PROC: B2151ZZ Fluoroscopy of Left Heart using Low Osmolar Contrast (ICD-10-PCS; 2017-10-27)
PROC: B2111ZZ Fluoroscopy of Multiple Coronary Arteries using Low Osmolar Contrast (ICD-10-PCS; 2017-10-27)
DX: I11.0 Hypertensive heart disease with heart failure (principal); I50.31 Acute diastolic (congestive) heart failure; I25.10 Atherosclerotic heart disease of native coronary artery without angina pectoris; I71.03 Dissection of thoracoabdominal aorta; D61.818 Other pancytopenia; E11.9 Type 2 diabetes mellitus without complications; I08.0 Rheumatic disorders of both mitral and aortic valves; E78.00 Pure hypercholesterolemia, unspecified; E78.5 Hyperlipidemia, unspecified; N40.0 Benign prostatic hyperplasia without lower urinary tract symptoms; Z79.84 Long term (current) use of oral hypoglycemic drugs; Z90.49 Acquired absence of other specified parts of digestive tract

== ENCOUNTER 2018-05-19 11:00 | Outpatient (CLI) | payer MEDICARE | END 2018-05-19 11:01 | disposition home or self-care (01) | LOC: C.LAB 11:00 | DX: E11.9 Type 2 diabetes mellitus without complications (principal); I10 Essential (primary) hypertension; E03.9 Hypothyroidism, unspecified ==